=== PATIENT | female | born 1965 | race Caucasian/White ===

== ENCOUNTER 2023-08-06 16:30 | Emergency (ER) | payer OTHER, SELFPAY ==
[2023-08-06 16:41] VITALS: BP 136/74; BP 160/90; PULSE 80; PULSE 84; RESP 18; O2SAT 100; O2SAT 99; BMI 23.0
[2023-08-06 16:51] VITALS: BP 136/74; PULSE 84; RESP 18; O2SAT 100
--- NOTE | 2023-08-06 16:57 | ED.GENADULT ---
HPI - General Adult General Chief complaint: General Medical Stated complaint: UTI INCREASED CONFUSION Time Seen by Provider: 08/06/23 16:41 Source: patient and RN notes reviewed Mode of arrival: EMS History of Present Illness HPI narrative: Pt is a 57yo female who presents to the ED from [facility] with a cc of they sent me here to make sure I don't have a heart problem and my tooth hurts . Pt states she has had a toothache for 2 weeks on the right side but she does not want us to do anything about it. Pt reports that [facility] had her come to make sure she was okay and for an EKG. She reports no cp, dizziness, rodas, SOB, or dysuria. She says that they people at [facility] may have been concerned because she was doing her anxiety breathing . She reports a hx of anxiety but no other psychiatric or medical conditions. She states that she is at [facility], and has been for about a week, due to increased anxiety and a little issue . Pt declined to elaborate further but declines current/prior SI/HI. Pt denies any daily medications. Of note pt states that she accepted a few days of antibiotics for a UTI over the course of the past week. Pt denies ever experiencing any dysuria, increased frequency, or urgency. Requesting ibuprofen for dental pain. Per nursing, Saimatrish Hartmanta sent the pt to the ED for eval for worsening confusion, paranoia, and ams from baseline. They stated she was dx with a UTI a week ago and has been noncompliant with the antibiotics. They note that she has a hx of bipolar disorder with paranoia and delusions. Additionally, pt is non-compliant with unknown psychiatric medications. Related Data Allergies Allergy/AdvReac Type Severity Reaction Status Date / Time Sulfa (Sulfonamide Allergy Blister Verified 08/06/23 16:49 Antibiotics) Review of Systems Constitutional: Constitutional: Denies chills, Reports fatigue and Denies headache(s) Eyes: Eyes: Denies change in vision ENT: Reports dental pain (states x2 weeks- cracked tooth on lower right side), Denies dizziness and Denies headache(s) Cardiovascular: Cardiovascular: Denies chest pain and Denies dyspnea Respiratory: Respiratory: Denies dyspnea Gastrointestinal: Gastrointestinal: Denies abdominal pain Genitourinary: Genitourinary: Denies difficulty voiding, Denies dysuria, Denies flank pain and Denies urinary urgency Neurologic: Denies dizziness and Denies headache(s) Psychiatric: Psychiatric: Reports anxiety, Denies depression, Reports panic attacks (states distant hx of panic attacks), Denies paranoia (pt denies), Denies homicidal ideation and Denies suicidal ideation Endocrine: Endocrine: Reports fatigue PMFSH Social History Social History Alcohol intake: never Smoked in Last 30 Days: No Use of substances other than those prescribed or required for medical reasons: No Advance Directives: No Advance Directives Information Provided: Yes Patient : No Physical Exam ED Vital Signs: Vital Signs - 24 hr 08/06/23 16:41 08/06/23 16:51 Pulse Rate 84 84 Respiratory Rate 18 18 Blood Pressure 136/74 136/74 Pulse Oximetry 100 100 Oxygen Delivery Method Room Air Room Air BMI result Body Mass Index 23.0 Const General: cooperative, no acute distress, alert, awake and other (guarded) Orientation/consciousness: patient oriented x3 HENMT Head: Yes normal to inspection Ears: hearing grossly normal bilaterally General nose exam: Normal external nose present Teeth and gingiva: abnormal dentition and poor dentition Teeth image: 1. tooth cracked in half; no evidence of infxn or abscess 2. missing tooth, dental pulp present; no evidence of infxn or abscess Throat: Yes posterior oropharynx normal Eyes General: appearance normal, both eyes and all related structures Resp Effort & Inspection: normal respiratory effort and able to speak in complete sentences Auscultation: clear to auscultation bilaterally Cardio Rate: regular rate Rhythm: regular rhythm Heart sounds: S1 normal heart sound present and S2 normal heart sound present Neuro General: patient oriented x3 Psych Appearance: grossly normal Mental Status: mental status grossly normal Speech and movement: Clear speech present (speech initially clear and not-pressured until became agitated), Pressured speech present and Psychomotor agitation in speech present Affect: Anxious affect present and Irritable affect present Attitude: Guarded attititude/behavior present Thought process: Confabulating thought process present and Flight of ideas present Thought content: Paranoid delusions present Insight: Poor insight present (Psych) Judgement: Limited judgement present (Psych) Course Reevaluation(s) Reevaluation #1: Patient has thus far refused labs, EKG and viral swabs. She has no neuro deficits, her vital signs are stable. I do not feel it is appropriate to sedate the medication to forcefully draw labs at this time. She has not been confused at all, remains paranoid. She is demanding discharge this time though she remains on a section 21. Her UA has some esterase, several white cells but no bacteria, no nitrates. The patient is asymptomatic, this does not likely reflect active UTI Time: 19:06 Medical Decision Making Medical Decision Making MDM Narrative: 57-year-old female presents for evaluation of reported increased confusion. At the time my evaluation she does not appear confused but seems to have an acute manic episode. Will check basic labs, EKG, UA. The patient is requesting ibuprofen for dental pain which will be given. Differential Diagnosis Differential Diagnoses: The differential diagnosis associated with the presentation includes (bipolar manic episode, delirium, psychosis, paranoia, tooth fracture) Lab Data Labs: Lab Results 08/06/23 08/06/23 08/06/23 Range/Units 17:56 17:56 17:56 Urine Color Yellow Cancelled Urine Appearance Clear Cancelled Urine pH 7.5 (5.0-9.0) Ur Specific [place] (1.005-1.025) Urine Protein (Neg-Trace) mg/dL Urine Glucose (UA) (Negative) mg/dL Urine Ketones (Negative) mg/dL Urine Blood (Negative) Urine Nitrite (Negative) Ur Leukocyte Esterase (Negative) Urine RBC (0-2) /HPF Urine WBC (0-5) /HPF Urine WBC Clumps Ur Squamous Epith Cells (0-2) /HPF Ur Transition Epith Cell Ur Renal Epithelial Cell Calcium Oxalate Crystal Leucine Crystals Cystine Crystals Tyrosine Crystals Other Crystals Urine Bacteria (None Seen) Urine Parasites Bilirubin Casts Epithelial Casts Fatty Casts Hyaline Casts (0-2) /LPF Granular Casts Waxy Casts Broad Casts RBC Casts WBC Casts Other Casts Urine Trichomonas Urine Yeast 08/06/23 08/06/23 08/06/23 Range/Units 17:56 17:56 17:56 Urine Color Urine Appearance Urine pH Cancelled (5.0-9.0) Ur Specific [place] <= 1.005 Cancelled (1.005-1.025) Urine Protein Negative Cancelled (Neg-Trace) mg/dL Urine Glucose (UA) Negative (Negative) mg/dL Urine Ketones (Negative) mg/dL Urine Blood (Negative) Urine Nitrite (Negative) Ur Leukocyte Esterase (Negative) Urine RBC (0-2) /HPF Urine WBC (0-5) /HPF Urine WBC Clumps Ur Squamous Epith Cells (0-2) /HPF Ur Transition Epith Cell Ur Renal Epithelial Cell Calcium Oxalate Crystal Leucine Crystals Cystine Crystals Tyrosine Crystals Other Crystals Urine Bacteria (None Seen) Urine Parasites Bilirubin Casts Epithelial Casts Fatty Casts Hyaline Casts (0-2) /LPF Granular Casts Waxy Casts Broad Casts RBC Casts WBC Casts Other Casts Urine Trichomonas Urine Yeast 08/06/23 08/06/23 08/06/23 Range/Units 17:56 17:56 17:56 Urine Color Urine Appearance Urine pH (5.0-9.0) Ur Specific [place] (1.005-1.025) Urine Protein (Neg-Trace) mg/dL Urine Glucose (UA) Cancelled (Negative) mg/dL Urine Ketones Trace Cancelled (Negative) mg/dL Urine Blood Negative Cancelled (Negative) Urine Nitrite Negative (Negative) Ur Leukocyte Esterase (Negative) Urine RBC (0-2) /HPF Urine WBC (0-5) /HPF Urine WBC Clumps Ur Squamous Epith Cells (0-2) /HPF Ur Transition Epith Cell Ur Renal Epithelial Cell Calcium Oxalate Crystal Leucine Crystals Cystine Crystals Tyrosine Crystals Other Crystals Urine Bacteria (None Seen) Urine Parasites Bilirubin Casts Epithelial Casts Fatty Casts Hyaline Casts (0-2) /LPF Granular Casts Waxy Casts Broad Casts RBC Casts WBC Casts Other Casts Urine Trichomonas Urine Yeast 08/06/23 08/06/23 08/06/23 Range/Units 17:56 17:56 17:56 Urine Color Urine Appearance Urine pH (5.0-9.0) Ur Specific [place] (1.005-1.025) Urine Protein (Neg-Trace) mg/dL Urine Glucose (UA) (Negative) mg/dL Urine Ketones (Negative) mg/dL Urine Blood (Negative) Urine Nitrite Cancelled (Negative) Ur Leukocyte Esterase Moderate (2+) H Cancelled (Negative) Urine RBC 0-2 Cancelled (0-2) /HPF Urine WBC 11-20 H (0-5) /HPF Urine WBC Clumps Ur Squamous Epith Cells (0-2) /HPF Ur Transition Epith Cell Ur Renal Epithelial Cell Calcium Oxalate Crystal Leucine Crystals Cystine Crystals Tyrosine Crystals Other Crystals Urine Bacteria (None Seen) Urine Parasites Bilirubin Casts Epithelial Casts Fatty Casts Hyaline Casts (0-2) /LPF Granular Casts Waxy Casts Broad Casts RBC Casts WBC Casts Other Casts Urine Trichomonas Urine Yeast 08/06/23 08/06/23 08/06/23 Range/Units 17:56 17:56 17:56 Urine Color Urine Appearance Urine pH (5.0-9.0) Ur Specific [place] (1.005-1.025) Urine Protein (Neg-Trace) mg/dL Urine Glucose (UA) (Negative) mg/dL Urine Ketones (Negative) mg/dL Urine Blood (Negative) Urine Nitrite (Negative) Ur Leukocyte Esterase (Negative) Urine RBC (0-2) /HPF Urine WBC Cancelled (0-5) /HPF Urine WBC Clumps Cancelled Ur Squamous Epith Cells 3-5 Cancelled (0-2) /HPF Ur Transition Epith Cell Cancelled Ur Renal Epithelial Cell Cancelled Calcium Oxalate Crystal Cancelled Leucine Crystals Cancelled Cystine Crystals Cancelled Tyrosine Crystals Cancelled Other Crystals Cancelled Urine Bacteria None Seen Cancelled (None Seen) Urine Parasites Cancelled Bilirubin Casts Cancelled Epithelial Casts Cancelled Fatty Casts Cancelled Hyaline Casts 0-2 (0-2) /LPF Granular Casts Waxy Casts Broad Casts RBC Casts WBC Casts Other Casts Urine Trichomonas Urine Yeast 08/06/23 Range/Units 17:56 Urine Color Urine Appearance Urine pH (5.0-9.0) Ur Specific [place] (1.005-1.025) Urine Protein (Neg-Trace) mg/dL Urine Glucose (UA) (Negative) mg/dL Urine Ketones (Negative) mg/dL Urine Blood (Negative) Urine Nitrite (Negative) Ur Leukocyte Esterase (Negative) Urine RBC (0-2) /HPF Urine WBC (0-5) /HPF Urine WBC Clumps Ur Squamous Epith Cells (0-2) /HPF Ur Transition Epith Cell Ur Renal Epithelial Cell Calcium Oxalate Crystal Leucine Crystals Cystine Crystals Tyrosine Crystals Other Crystals Urine Bacteria (None Seen) Urine Parasites Bilirubin Casts Epithelial Casts Fatty Casts Hyaline Casts Cancelled (0-2) /LPF Granular Casts Cancelled Waxy Casts Cancelled Broad Casts Cancelled RBC Casts Cancelled WBC Casts Cancelled Other Casts Cancelled Urine Trichomonas Cancelled Urine Yeast Cancelled Discharge Plan Discharge Clinical Impression: Jennifer, Paranoid Patient Disposition: [facility]fer [facility] Transfer Details: Saima Harvey Instructions: Psychotic Disorder (ED)
--- NOTE | 2023-08-06 17:43 | MHC.EDTECH ---
Patient refused EKG. Nurse aware.
--- NOTE | 2023-08-06 17:56 | MHC.EDTECH ---
Patient refused lab work. PA aware.
--- NOTE | 2023-08-06 18:04 | MHC.EDTECH ---
Patient refused nasal swab. PA aware.
[2023-08-06 18:09] LABS: Appearance Urine Clear; Color Urine Yellow; Glucose Urine UA Negative (Negative); Leukocyte Esterase Urine Moderate (2+) (Negative); Nitrite Urine Negative (Negative); PH 7.5 (5.0-9.0); Specific Gravity - Urine <= 1.005 (1.005-1.025); UMIC TRIGGER UACC YES; Urine Blood Negative (Negative); Urine Ketones Trace mg/dL (Negative); Urine Protein Negative (Neg-Trace)
[2023-08-06 18:11] LABS: Bacteria Urine None Seen (None Seen); Hyaline Casts Urine 0-2 /LPF (0-2); RBC Urine 0-2 /HPF (0-2); UACC Culture Trigger YES
--- NOTE | 2023-08-06 19:25 | PC.NURSE ---
This RN called Bridgett @ [phone] regarding pt unable to get a hold of anyone. Left message for a return call regarding the pt. This RN updated the kiln charger Valeria. Plan of care ongoing.
--- NOTE | 2023-08-06 19:26 | PC.NURSE ---
Security has brought patients belongings to locker 12. Patient aware of her belongings being secured until discharge.
--- NOTE | 2023-08-06 21:16 | PC.NURSE ---
Pt refusing everything.
== END 2023-08-06 21:21 ==
PROVIDERS: Physician Assistant; Emergency Provider Internal Medicine
DX: F60.0 Paranoid personality disorder (principal); F22 Delusional disorders; K08.89 Other specified disorders of teeth and supporting structures
CPT/HCPCS: 81001; 87086; 99282; 99285